=== PATIENT | female | born 1975 ===

== ENCOUNTER 2017-12-27 11:58 | Emergency (ER) | payer MEDICAID ==
[2017-12-27 12:05] VITALS: PULSE 87; RESP 16; TEMP 98.4; O2SAT 100
[2017-12-27] MEDS ORDERED: Albuterol-Ipratrop 3 mg / 0.5 (3 ml) UD INH STA (12:19)
--- NOTE | 2017-12-27 12:24 | ED PDOC ---
History of Present Illness History of Present Illness: 42yo female presents to the ED complaining of sore throat, productive cough and ill feeling including bodyaches for two days. Pt denies fever or any attempt at self medicating beyond an albuterol inhaler. Pt is known to have asthma. Pt has no ill contacts and complains too of mild laryngitis since this morning. HPI: Influenza Time Seen by Provider: 12/27/17 12:10 Chief Complaint: ENT Problem Past Medical History Vital Signs: Last Vital Signs Temp 98.4 F 12/27/17 12:02 Pulse 87 12/27/17 12:02 Resp 16 12/27/17 12:02 BP 170/98 H 12/27/17 12:02 Pulse Ox 100 12/27/17 12:02 - Medical History PMH: Asthma, Gastritis, HTN Denies: Chronic Kidney Disease - Family History Family History: States: Unknown Family Hx - Living Arrangements Living Arrangements: With Family - Social History Current smoker - smoking cessation education provided: No - Immunization History Hx Tetanus Toxoid Vaccination: No Hx Influenza Vaccination: Yes Hx Pneumococcal Vaccination: Yes - Home Medications Home Medications: Ambulatory Orders Medication Instructions Recorded Atenolol 50 mg PO DAILY 12/11/17 Enalapril Maleate [Vasotec] 10 mg PO DAILY 12/11/17 Ergocalciferol (Vitamin D2) 50,000 unit PO QD7 12/11/17 [Vitamin D2] Meclizine HCl 25 mg PO TID 12/11/17 Naproxen 500 mg PO BID 12/11/17 Omeprazole 40 mg PO DAILY 12/11/17 Ondansetron ODT [Zofran ODT] 4 mg PO TID PRN #12 odt 12/11/17 Sertraline [Zoloft] 100 mg PO DAILY 12/11/17 Amoxicillin/Clavulanate [Augmentin 1 tab PO BID #20 tab 12/27/17 875 MG-125 MG] Oseltamivir Phosphate [Tamiflu] 75 mg PO BID #10 capsule 12/27/17 - Allergies Allergies/Adverse Reactions: Allergies Allergy/AdvReac Type Severity Reaction Status Date / Time No Known Allergies Allergy Verified 12/11/17 09:44 Review of Systems Constitutional: Positive for: Malaise ENT: Positive for: Nose Congestion Respiratory: Positive for: Cough, Wheezing Physical Exam - Physical Exam Appears: Positive for: Uncomfortable Head Exam: Positive for: ATRAUMATIC Skin: Positive for: Normal Color ENT: Positive for: Pharynx Is, Nasal Congestion, Pharyngeal Erythema. Negative for: Tonsillar Exudate, Tonsillar Swelling Neck: Positive for: Supple, Trachea Midline Cardiovascular/Chest: Positive for: Regular Rate, Rhythm Respiratory: Positive for: Wheezing. Negative for: Accessory Muscle Use, Crackles, Rhonchi, Stridor, Plerual Rub - ECG O2 Sat by Pulse Oximetry: 100 - Progress ED Course And Treament: 10mg decadron 1x duoneb inhaled nebulizer Condition: Re-examined (Pt is feeling better and wishes to go home; pt symptoms persist but to a milder degree; discussed use of apap and ibu with patient), Improved, Improving,but remains with symptoms Disposition - Clinical Impression Clinical Impression: Ear, nose, and throat symptom, Tonsillitis - Patient ED Disposition Is Patient to be Admitted: No - Disposition Disposition: Routine/Home Disposition Time: 12:56 Condition: GOOD Prescriptions: Amoxicillin/Clavulanate [Augmentin 875 MG-125 MG] 1 tab PO BID #20 tab Oseltamivir Phosphate [Tamiflu] 75 mg PO BID #10 capsule Instructions: Sore Throat, Adult (DC) Forms: [employer] (Slovak), [employer] (Khmer)
[2017-12-27 12:44] VITALS: BP 154/99
== END 2017-12-27 13:15 | disposition home or self-care (01) ==
LOC: H.ER 11:58
DX: J03.90 Acute tonsillitis, unspecified (principal); I10 Essential (primary) hypertension; J45.909 Unspecified asthma, uncomplicated
CPT/HCPCS: 81025; 94150; 94640; 96372; 99282; J1100